=== PATIENT | male | born 1960 | race Caucasian/White ===

== ENCOUNTER 2019-09-11 12:41 | Emergency (ER) | payer OTHER ==
--- NOTE | 2019-09-11 12:59 | EDM.PDOC ---
ED HPI GENERAL MEDICAL PROBLEM - General Chief Complaint: Neurological Problem Stated Complaint: COMPLICATION WITH STROKE Time Seen by Provider: 09/11/19 12:50 Source of Information: Reports: Patient History Limitations: Reports: No Limitations - History of Present Illness INITIAL COMMENTS - FREE TEXT/NARRATIVE: This 59 yo male patient reports to the ED with his due to a sudden onset of an ocular headache and an abrupt onset of dizziness. The patient reports he had a stroke on 08/30/19. During that event, the patient was flown to [facility] for treatment. The patient got out of [facility] about 1 week ago. The patient was on his way up to PT/OT at the time of his symptom onset. The patient initially reported that he could not get out of the car. Once there was a wheelchair at the car, the patient was able to get out of the Onset: Today Duration: Minutes:, Constant Location: Reports: Head Quality: Reports: Ache, Dull Severity: Moderate Improves with: Reports: None Worsens with: Reports: None Context: Reports: Other Associated Symptoms: Reports: Headaches (ocular), Weakness, Other (dizziness) Frontal Head Pain Score (Numeric/FACES): 5 - Related Data Allergies Allergy/AdvReac Type Severity Reaction Status Date / Time No Known Allergies Allergy Verified 09/11/19 12:57 Home Meds: Home Meds Aspirin [Aspirin EC] 325 mg PO DAILY 09/11/19 [History] Cholecalciferol (Vitamin D3) [Vitamin D3] 400 unit PO DAILY 09/11/19 [History] Clopidogrel [Plavix] 75 mg PO DAILY 09/11/19 [History] Escitalopram Oxalate [Lexapro] 20 mg PO DAILY 09/11/19 [History] Isosorbide Mononitrate [Isosorbide Mononitrate ER] 30 mg PO DAILY 09/11/19 [ History] Mirtazapine [Remeron] 15 mg PO DAILY 09/11/19 [History] Multivitamin with Minerals [Multiple Vitamin] 1 tab PO DAILY 09/11/19 [History] Niacin 500 mg PO BEDTIME 09/11/19 [History] Nitroglycerin [Nitrostat] 0.4 mg SL ASDIRECTED PRN 09/11/19 [History] Vitamin B Complex 1 each PO DAILY 09/11/19 [History] Zaleplon [Sonata] 10 mg PO BEDTIME PRN 09/11/19 [History] amLODIPine [Norvasc] 5 mg PO DAILY 09/11/19 [History] atorvaSTATin [Lipitor] 40 mg PO BEDTIME 09/11/19 [History] busPIRone [Buspar] 10 mg PO TID PRN 09/11/19 [History] levETIRAcetam [Keppra] 500 mg PO BID 09/11/19 [History] traZODone HCl [Trazodone HCl] 50 mg PO BEDTIME 09/11/19 [History] ED ROS GENERAL - Review of Systems Review Of Systems: Comprehensive ROS is negative, except as noted in HPI. ED EXAM, NEURO - Physical Exam Exam: See Below Exam Limited By: No Limitations General Appearance: Alert, WD/WN, Anxious, Moderate Distress Eye Exam: Bilateral Eye: EOMI, Normal Inspection, PERRL Ears: Normal External Exam, Normal Canal, Hearing Grossly Normal, Normal TMs Nose: Normal Inspection, Normal Mucosa, No Blood Throat/Mouth: Normal Inspection, Normal Lips, Normal Teeth, Normal Gums, Normal Oropharynx, Normal Voice, No Airway Compromise Head Exam: Atraumatic, Normocephalic Neck: Normal Inspection, Supple, Non-Tender, Full Range of Motion Respiratory/Chest: No Respiratory Distress, Lungs Clear, Normal Breath Sounds, No Accessory Muscle Use, Chest Non-Tender Cardiovascular: Normal Peripheral Pulses, Regular Rate, Rhythm, No Edema, No Gallop, No JVD, No Murmur, No Rub GI/Abdominal: Normal Bowel Sounds, Soft, Non-Tender, No Organomegaly, No Distention, No Abnormal Bruit, No Mass (Male) Exam: Deferred Rectal (Males) Exam: Deferred Neurological: Alert, Normal Mood/Affect, Normal Dorsiflexion, CN II-XII Intact, Normal Plantar Flexion, Normal Gait, Normal Reflexes, No Motor/Sensory Deficits , Oriented x 3 Back Exam: Normal Inspection, Full Range of Motion, NT Extremities: Normal Inspection, Normal Range of Motion, Non-Tender, No Pedal Edema, Normal Capillary Refill Psychiatric: Normal Affect, Normal Mood Skin Exam: Warm, Dry, Intact, Normal Color, No Rash Course - Vital Signs Last Recorded V/S: Last Vital Signs Temp 35.9 C L 09/11/19 12:44 Pulse 55 L 09/11/19 12:44 Resp 16 09/11/19 12:44 BP 112/59 L 09/11/19 12:44 Pulse Ox 100 09/11/19 12:44 - Orders/Labs/Meds Orders: Active Orders 24 hr Category Date Time Status EKG Documentation Completion [RC] URGENT Care 09/11/19 12:53 Active Labs: Laboratory Tests 09/11/19 09/11/19 09/11/19 Range/Units 12:55 12:55 12:55 WBC 10.8 H (5.0-10.0) 10^3/uL RBC 4.60 (4.6-6.2) 10^6/uL Hgb 13.4 L (14.0-18.0) g/dL Hct 41.1 (40.0-54.0) % MCV 89.3 (80-100) fL MCH 29.1 (27.0-34.0) pg MCHC 32.6 L (33.0-35.0) g/dL Plt Count 270 (150-450) 10^3/uL Neut % (Auto) 70.9 (42.2-75.2) % Lymph % (Auto) 17.3 L (20.5-50.1) % Mineral % (Auto) 9.7 H (2-8) % Eos % (Auto) 1.9 (1.0-3.0) % Baso % (Auto) 0.2 (0.0-1.0) % PT 10.2 (9.0-12.0) SEC INR 1.0 (0.9-1.2) Sodium 139 (135-145) mmol/L Potassium 4.1 (3.6-5.0) mmol/L Chloride 105 (101-111) mmol/L Carbon Dioxide 26.0 (21.0-31.0) mmol/L Anion Gap 12.1 BUN 18 (7-18) mg/dL Creatinine 1.0 (0.6-1.3) mg/dL Est Cr Clr Drug Dosing TNP Estimated GFR (MDRD) > 60 BUN/Creatinine Ratio 18.00 Glucose 95 (74-105) mg/dL Calcium 9.0 (8.4-10.2) mg/dl Total Bilirubin 0.5 (0.2-1.0) mg/dL AST 27 (10-42) IU/L ALT 29 (10-60) IU/L Alkaline Phosphatase 66 (42-121) IU/L Troponin I 0.03 H* (0.00-0.02) ng/ml Total Protein 6.7 (6.7-8.2) g/dl Albumin 3.7 (3.2-5.5) g/dl Globulin 3.0 Albumin/Globulin Ratio 1.23 Departure - Departure Time of Disposition: 14:12 Disposition: DC/Tfer to Acute Hospital 02 Condition: Fair Clinical Impression: Ischemic stroke - Discharge Information *PRESCRIPTION DRUG MONITORING PROGRAM REVIEWED*: Not Applicable *COPY OF PRESCRIPTION DRUG MONITORING REPORT IN PATIENT THOMAS: Not Applicable Forms: Interfacility Transfer EMTALA Care Plan Goals: Discussed the patient's history, examination, lab, EKG and CT results with Dr. Cochran. Dr. Cochran accepted the patient for continued evaluation and further management at [facility] in [place]. The patient will be transported by [facility]. Sepsis Event Note - Focused Exam Vital Signs: Vital Signs Temp Pulse Resp BP Pulse Ox 09/11/19 12:44 35.9 C L 55 L 16 112/59 L 100 Date Exam was Performed: 09/11/19 Time Exam was Performed: 14:12 - My Orders Last 24 Hours: My Active Orders 09/11/19 12:53 EKG Documentation Completion [RC] URGENT - Assessment/Plan Last 24 Hours: My Active Orders 09/11/19 12:53 EKG Documentation Completion [RC] URGENT
[2019-09-11 13:26] LABS: ANION GAP 12.1; CHLORIDE,CL 105 mmol/L (101-111); SODIUM,NA 139 mmol/L (135-145)
--- NOTE | 2019-09-11 14:06 | CT ---
EXAMINATION: Head wo Cont SEX: Male AGE: 59 years CLINICAL HISTORY: 59-year-old male complaining of DIZZINESS (headache and ocular pain). No known trauma. History CVA mid August, [place]. Scan technique: Volume acquisition of data emergency unenhanced CT scan of the head and brain obtained with patient lying supine on the Siemens multi slice scanner [place], [place]. All data archived in the PACS system for storage, reformatting axial/sagittal/coronal planes and study (bone/brain windows). Interpretation: 1. Inflammatory mucoperiosteal thickening maxillary antrum on the right and small retention cyst in the contralateral left maxillary antrum. Nasal septum in the midline. Symmetric clear pneumatization of the frontal, ethmoid, sphenoid and mastoid sinuses. 2. Uniformly thick bony calvarium without sign of skull fracture, underlying brain contusion or epidural/subdural hematoma. 3. *Large areas decreased attenuation involving the frontal lobe on the right (seen 31 August) and now (new) left temporal lobe, with effacement of the sulci indicating edema. No midline shifts. 4. No sign of acute intracerebral/intraventricular/subarachnoid bleed. 5. *Several smaller areas of decreased attenuation scattered in both cerebral hemispheres i.e. multi-infarct disease. Embolic? 6. No supratentorial or posterior fossa mass lesion. Cerebellum and brainstem unremarkable. 7. No hydrocephalus. CONCLUSION: Multi-infarct ischemic disease. Chronic maxillary sinusitis. No intracranial mass, hydrocephalus or bleed.
--- NOTE | 2019-09-11 14:10 | CT ---
EXAMINATION: Max Facial Sinus wo Cont SEX: Male AGE: 59 years CLINICAL HISTORY: 59-year-old male with history "CVA" complaining now of dizziness and headache (ocular pain). Scan technique: Volume acquisition of data facial bones and paranasal sinuses obtained with patient lying supine on the Siemens multislice scanner . All data archived in the PACS system for storage, reformatting axial/sagittal/coronal planes and study. Interpretation: 1. Mucoperiosteal inflammation maxillary antrum on the right. Isolated small retention cyst lateral wall of the left maxillary sinus. 2. Midline nasal septum and nonedematous nasal turbinates. 3. Symmetric clear pneumatization of the frontal, ethmoid, sphenoid and mastoid sinuses. No mucoperiosteal inflammation, antral mass, or pathologic air-fluid levels. No foreign bodies or bony wall destruction. 4. No nasal bone or anterior maxillary spine fractures. Reactive arthritis atlantoaxial joint. First 2 cervical vertebral unremarkable. Normal TMJs. CONCLUSION: Chronic inflammatory changes maxillary antra, bilaterally. Paranasal and mastoid sinuses otherwise unremarkable i.e. negative.
== END 2019-09-11 14:46 ==
LOC: DL.ED 12:41
DX: I63.9 Cerebral infarction, unspecified (principal); Z79.82 Long term (current) use of aspirin; Z79.02 Long term (current) use of antithrombotics/antiplatelets; Z79.899 Other long term (current) drug therapy
CPT/HCPCS: 36415; 70450; 70486; 80053; 84484; 85025; 85610; 93005; 99285-25